=== PATIENT | male | born 1975 | race Caucasian/White ===

== ENCOUNTER → 2024-10-06 14:31 | Outpatient (CLI) | payer OTHER, SELFPAY ==
[2024-10-06 15:53] LABS: Influenza A - CEPHEID Flu A NEGATIVE (NEGATIVE); Influenza B - CEPHEID Flu B NEGATIVE (NEGATIVE); Respiratory Syncytial Virus Negative (Negative)
[2024-10-06 17:17] LABS: COVID-19 CEPHEID 4-PLEX PCR Negative (Negative)
== END ==
PROVIDERS: Visit Provider Student in an Organized Health Care Education/Training Program
DX: N23 Unspecified renal colic (principal); R50.9 Fever, unspecified; R05.1 Acute cough; J06.9 Acute upper respiratory infection, unspecified; Z85.6 Personal history of leukemia
CPT/HCPCS: 0241U; 87086

== ENCOUNTER 2024-10-10 15:16 | Observation (INO) | payer OTHER, SELFPAY ==
[2024-10-10] VITALS (14 sets, daily range): BP systolic 114–151; BP diastolic 67–97; PULSE 71–86; RESP 16–22; TEMP 36.8–37.9; O2SAT 88–97; BMI 28.3
--- NOTE | 2024-10-10 15:36 | DI.RAD.S_ITS ---
PROCEDURE: XR CHEST 2V INDICATIONS: pneumonia TECHNIQUE: 2 views of the chest were acquired. COMPARISON: None. FINDINGS: Surgical changes and devices: None. Lungs and pleura: There is patchy airspace opacity within the right lower lung. No pleural effusions or pneumothorax. Mediastinum: Mediastinal contours are normal. Heart size is normal. Bones and chest wall: No suspicious bony abnormalities. Soft tissues appear unremarkable. IMPRESSION: Right-sided pneumonia in the appropriate clinical setting. Dictated by: Ciarra Montanez M.D. on 10/10/2024 at 15:26 Approved by: Ciarra Montanez M.D. on 10/10/2024 at 15:27
[2024-10-10 15:47] LABS: Add Manual Diff / Slide Review NO; Basophils Absolute Auto 0 /uL (0-100); Basophils Percent Auto 0.8 % (0-2); Eosinophils Absolute Auto 100 /uL (0-450); Eosinophils Percent Auto 1.4 % (2-4); Hematocrit 40.1 % (41-53); Hemoglobin 13.7 g/dL (13.5-17.5); Lymphocytes Absolute Auto 900 /uL (1100-4500); Mean Corpuscular HGB Conc 34.2 % (30-36); Mean Corpuscular Hemoglobin 30.3 PG (26-34); Mean Corpuscular Volume 88.8 fL (80-100); Monocytes Absolute Auto 500 /uL (0-900); Monocytes Percent Auto 10.7 % (3-14); Neutrophils Absolute Auto 3300 /uL (1500-7000); Neutrophils Percent Auto 69.1 % (50-75); Platelet Count 152 X10^3/uL (150-400); Red Blood Cell Count 4.51 X10^6/uL (4.5-5.9); Red Cell Distribution Width 13.9 % (11.6-14.8); White Blood Cell Count 4.8 X10^3/uL (4.5-11.0)
--- NOTE | 2024-10-10 15:47 | ED_ITS ---
HPI - SOB/Dyspnea General Chief Complaint: Shortness of Breath/Dyspnea Stated Complaint: Low O2, SoB, Weight Loss Time Seen by Provider: 10/10/24 15:30 Source: patient Mode of arrival: Wheelchair Limitations: no limitations History of Present Illness HPI Narrative: Patient is a healthy 48-year-old male with remote history of hairy-cell leukemia presenting today with cough and shortness of breath. Diagnosed with probable pneumonia 4 days ago, he had a negative COVID influenza RSV swab he was prescribed Augmentin and doxycycline however he did not start taking the antibiotics. He reports sweats and chills throughout the week he says his temperature never got above 100 she was not sure if you should take the antibiotics. He has had significant decrease in appetite and has lost 10 lb this week. He is continuing to drink fluids he is trying to drink some Pedialyte he is trying to have an ensure a day. But overall significant loss of appetite. He was noted to be hypoxic at the walk-in clinic today and was sent to the ED for evaluation. He says that he coughs every time he takes a deep breath. Related Data Previous Rx's Medication Instructions Recorded amoxicillin 875 mg-potassium 1 tab PO Q12H 7 days #14 tabs 10/06/24 clavulanate 125 mg tablet benzonatate 100 mg capsule 100 mg PO TID PRN cough 7 days #21 10/06/24 caps doxycycline hyclate 100 mg capsule 100 mg PO BID 7 days #14 caps 10/06/24 Allergies Allergy/AdvReac Type Severity Reaction Status Date / Time No Known Drug Allergies Allergy Verified 10/06/24 14:29 Patient History Medical History BCC (basal cell carcinoma of skin) Pneumonia Surgical History Hx of tonsillectomy Social History current occupational exposures/hazards: No Smoking Status: Never smoker alcohol intake: current substance use type: does not use Smoking Status: Never smoker alcohol intake frequency: a few times a week Substance Use Type: does not use Exam Initial Vital Signs Initial Vital Signs: Vital Signs Temperature 98.2 F 10/10/24 15:25 Pulse Rate 80 10/10/24 15:25 Respiratory Rate 22 10/10/24 15:25 Blood Pressure 151/97 H 10/10/24 15:25 Pulse Oximetry 94 10/10/24 15:25 Oxygen Delivery Method Room Air 10/10/24 15:25 GENERAL: Slightly diaphoretic 48-year-old male appears to not feel well and in no acute distress. HEENT: Head atraumatic,EOMI, pupils reactive, face symmetric, moist mucous membranes CARDIOVASCULAR: Regular rate and rhythm without murmurs, rubs or gallops. RESPIRATORY: Breath sounds equal bilaterally, no wheezes rales or rhonchi. ABDOMEN: Soft, nontender. Normoactive bowel sounds all 4 quadrants. No guarding or rebound. EXTREMITIES: Normal range of motion, no clubbing or edema. Neurovascularly intact NEUROLOGICAL: Alert and oriented x4.Normal gait and speech. Cranial nerves II through XII grossly intact. SKIN: Warm, dry, no laceration, no petechiae, no rashes or lesions. Course Orders Ordered: ED Orders 10/10/24 15:32 CBC Auto Diff [Complete Blood Count AUTO DIFF] Stat CMP [Comprehensive Metabolic Panel] Stat Lactate (Lactic Acid) Stat Procalcitonin Stat 10/10/24 15:36 Chest [XR chest 2V] Stat 10/10/24 15:58 Blood Culture Stat 10/10/24 17:05 CT angio chest PE protocol Stat Acetaminophen (Acetaminophen 325 Mg Tablet) 650 mg PO Q6H PRN PRN Reason: Fever/Mild Pain (1-3) Hydrocodone Bitart/Acetaminophen (Hydrocodone/Acet 5/325 Tablet) 1 tab PO Q4H PRN PRN Reason: Pain, Moderate (4-6) Al Hydrox/Mg Hydrox/Simethicone (Mag Hydrox/Alum/Simeth 30 Ml Udc) 30 ml PO Q6HR PRN PRN Reason: Dyspepsia Benzonatate (Benzonatate 100 Mg Capsule) 100 mg PO TID PRN PRN Reason: cough Calcium Carbonate (Calcium Carbonate 500 Mg Tab) 1,000 mg PO Q4HR PRN PRN Reason: Dyspepsia Enoxaparin Sodium (Enoxaparin 40 Mg/0.4 Ml Syringe) 40 mg SUBCUT DAILY KARIS Ceftriaxone Sodium 1,000 mg/ (Sodium Chloride) 100 mls @ 200 mls/hr IV Q24H [facility] Stop: 10/15/24 17:59 Azithromycin 500 mg/ Dextrose 250 mls @ 250 mls/hr IV Q24H [facility] Stop: 10/13/24 17:59 Naloxone HCl (Naloxone 0.4 Mg/Ml Vial) 0.2 mg IV Q2MIN PRN PRN Reason: Opiate Reversal Ondansetron HCl (Ondansetron 4 Mg/2 Ml Inj) 4 mg IV Q8HR PRN PRN Reason: Nausea And Vomiting Prednisone (Prednisone 20 Mg Tablet) 50 mg PO DAILY [facility] Stop: 10/18/24 08:59 Discontinued Medications Albuterol/Ipratropium (Albuterol/Ipratropium 3 Ml Ampul) 3 ml INH NOW ONE Stop: 10/10/24 15:53 Last Admin: 10/10/24 15:58 Dose: 3 ml Documented By: ROMEO Ceftriaxone Sodium 1,000 mg/ (Sodium Chloride) 100 mls @ 200 mls/hr IV NOW ONE Stop: 10/10/24 17:06 Last Admin: 10/10/24 17:15 Dose: 200 mls/hr Documented By: ZACHARY Azithromycin 500 mg/ Dextrose 250 mls @ 250 mls/hr IV NOW ONE Stop: 10/10/24 17:06 Vital Signs Vital signs: Vital Signs - 8 hr 10/10/24 15:25 10/10/24 15:50 10/10/24 16:00 Temperature 98.2 F Pulse Rate 80 86 76 Respiratory Rate 22 Blood Pressure 151/97 H Pulse Oximetry 94 97 91 Oxygen Delivery Method Room Air Oxygen Flow Rate 10/10/24 16:06 10/10/24 16:15 10/10/24 16:19 Temperature Pulse Rate 76 Respiratory Rate 16 Blood Pressure Pulse Oximetry 92 88 L 93 Oxygen Delivery Method Room Air Room Air Nasal Cannula Oxygen Flow Rate 0 2 10/10/24 16:30 10/10/24 16:45 10/10/24 16:45 Temperature Pulse Rate 84 81 Respiratory Rate Blood Pressure 144/68 H Pulse Oximetry 92 96 Oxygen Delivery Method Oxygen Flow Rate 10/10/24 17:00 10/10/24 17:00 Temperature Pulse Rate 84 Respiratory Rate Blood Pressure 135/67 Pulse Oximetry 94 Oxygen Delivery Method Oxygen Flow Rate MDM - SOB/Dyspnea Lab Data 10/10/24 15:32 10/10/24 15:32 Labs: Lab Results 10/10/24 Range/Units 15:32 WBC 4.8 (4.5-11.0) X10^3/uL RBC 4.51 (4.5-5.9) X10^6/uL Hgb 13.7 (13.5-17.5) g/dL Hct 40.1 L (41-53) % MCV 88.8 (80-100) fL MCH 30.3 (26-34) PG MCHC 34.2 (30-36) % RDW 13.9 (11.6-14.8) % Plt Count 152 (150-400) X10^3/uL Neut % (Auto) 69.1 (50-75) % Lymph % (Auto) 18.0 L (25-40) % [place] % (Auto) 10.7 (3-14) % Eos % (Auto) 1.4 L (2-4) % Baso % (Auto) 0.8 (0-2) % Neut # (Auto) 3300 (6935-3649) /uL Lymph # (Auto) 900 L (9673-5640) /uL [place] # (Auto) 500 (0-900) /uL Eos # (Auto) 100 (0-450) /uL Baso # (Auto) 0 (0-100) /uL Sodium 132 L (137-145) mmol/L Potassium 4.1 (3.4-5.1) mmol/L Chloride 98 (98-107) mmol/L Carbon Dioxide 28 (22-32) mmol/L BUN 15 (9-20) mg/dL Creatinine 1.11 (0.66-1.25) mg/dL Estimated GFR > 60 (>60) mL/min BUN/Creatinine Ratio 13.5 (6-22) Glucose 102 H (70-100) mg/dL Lactate 1.1 (0.7-2.1) mmol/L Calcium 9.1 (8.4-10.2) mg/dL Total Bilirubin 0.7 (0.2-1.3) mg/dL AST 50 (17-59) IU/L ALT 48 (<50) IU/L Alkaline Phosphatase 50 (38-126) U/L Total Protein 7.3 (6.3-8.2) g/dL Albumin 4.0 (3.5-5.0) g/dL Globulin 3.3 (1.7-4.1) g/dL Albumin/Globulin Ratio 1.2 (1.0-2.8) Procalcitonin 0.277 (<0.5) ng/mL Imaging Data CT scan - chest: Radiologist's Impression: PROCEDURE: CT ANGIO CHEST PE PROTOCOL INDICATIONS: hypoxia TECHNIQUE: After the administration of intravenous contrast, 2 mm thick sections acquired from the pulmonary apices to the posterior costophrenic angles. 3-dimensional maximum intensity projection (MIP) coronal and sagittal reformats were then acquired through the thorax. For radiation dose reduction, the following was used: automated exposure control, adjustment of mA and/or kV according to patient size. COMPARISON: None. FINDINGS: Image quality: Diagnostic. Pulmonary arteries: Pulmonary arteries are normal in size, and demonstrate no intraluminal filling defects to suggest central pulmonary embolism. Lower Neck: No enlarged lymph nodes. Thyroid: No thyroid nodules which require sonographic follow up, per consensus guidelines. Axillae: No enlarged lymph nodes. Chest Wall: Unremarkable. Bones: Unremarkable. Lungs and Pleura: No pneumothorax or pleural effusions. Lungs demonstrate scattered centrilobular ground-glass opacities throughout with a lower lung predominance. Heart: Heart size is normal. No pericardial effusion. Thoracic Vessels: No aortic aneurysm. Mediastinum and [place]: No enlarged lymph nodes. Esophagus: No wall thickening. No hiatal hernia. Upper Abdomen: Visualized upper abdomen solid organs and bowel loops appear normal. IMPRESSION: No pulmonary embolus. Diffuse airspace opacities consistent with an infectious process including covid. Dictated by: Ciarra Montanez M.D. on 10/10/2024 at 16:49 Chest x-ray: Radiologist's Impression: PROCEDURE: XR CHEST 2V INDICATIONS: pneumonia TECHNIQUE: 2 views of the chest were acquired. COMPARISON: None. FINDINGS: Surgical changes and devices: None. Lungs and pleura: There is patchy airspace opacity within the right lower lung. No pleural effusions or pneumothorax. Mediastinum: Mediastinal contours are normal. Heart size is normal. Bones and chest wall: No suspicious bony abnormalities. Soft tissues appear unremarkable. IMPRESSION: Right-sided pneumonia in the appropriate clinical setting. Dictated by: Ciarra Montanez M.D. on 10/10/2024 at 15:26 Approved by: Ciarra Montanez M.D. on 10/10/2024 at 15:27 MDM Narrative Medical decision making narrative: MDM CC: Cough fever Complicating co-morbidities: Remote history hairy-cell leukemia, in remission since 2018 Medical records reviewed: Recent walk-in clinic Differential considered: Pneumonia viral illness CHF pulmonary embolus Exam documented above, pertinent findings include: Decreased breath sounds bilaterally no wheezes rales or rhonchi slightly diaphoretic no significant conversational dyspnea Lab Test results independently reviewed as above. Pertinent findings: CBC does not show any leukocytosis or anemia, WBCs 4.8 hemoglobin 13.7 hematocrit 40.1 CMP no significant electrolyte abnormality or NILSA, creatinine is 1.1 which is baseline Lactate 1.1, procalcitonin 0.277 Imaging studies independently reviewed: Chest x-ray consistent with pneumonia CT angio no pulmonary embolism consistent with pneumonia Consultations: Dr. Barron updated patient's symptoms test results, accepts to observation Treatments: Albuterol, Rocephin and azithromycin Re-evaluations: No significant improvement after albuterol patient was 88% on room air placed on 1 L Patient ambulated on room air around the department O2 sat went to 83% and lips got cyanotic Discussion: Patient 48-year-old male remote history of hairy cell leukemia presenting today with cough fever shortness of breath and hypoxia. He was diagnosed with probable pneumonia if you days ago prescribed antibiotics but not started on them. X-ray confirms pneumonia. Blood work has been reviewed and overall reassuring without evidence of sepsis. He had a negative viral panel few days ago Due to patient's significant exertional hypoxia patient will need to be admitted. CT does not show any evidence of embolism. He has no sign of severe sepsis he has no leukocytosis hypotension or tachycardia he has a normal lactate. However he is requiring oxygen. Discharge Plan Departure Patient Disposition: Admitted as Observation Clinical Impression: Pneumonia Admit Date/Time: 10/10/24 17:15 Admit Provider: El Barron
[2024-10-10 15:57] LABS: Alanine Aminotransferase 48 IU/L (<50); Albumin Globulin Ratio 1.2 (1.0-2.8); Alkaline Phosphatase 50 U/L (38-126); Aspartate Aminotransferase 50 IU/L (17-59); BUN Creatinine Ratio 13.5 (6-22); Bilirubin Total 0.7 mg/dL (0.2-1.3); Blood Urea Nitrogen 15 mg/dL (9-20); Calcium 9.1 mg/dL (8.4-10.2); Carbon Dioxide 28 mmol/L (22-32); Chloride 98 mmol/L (98-107); Estimated Glomerular Filt Rate > 60 mL/min (>60); Globulin 3.3 g/dL (1.7-4.1); Glucose 102 mg/dL (70-100); HEMOLYSIS 19 (0-50); Lactate (Lactic Acid) 1.1 mmol/L (0.7-2.1); Potassium 4.1 mmol/L (3.4-5.1); Sodium 132 mmol/L (137-145); Total Protein 7.3 g/dL (6.3-8.2)
[2024-10-10] MEDS: ALBUTEROL/IPRATROPIUM 3 ML AMPUL INH (15:58)
[2024-10-10 16:14] LABS: Procalcitonin 0.277 ng/mL (<0.5)
--- NOTE | 2024-10-10 16:47 | PC.NURSE ---
patient was 91% on RA prior to ambulating on a pulse ox. He walked approx. 100ft. At the end of the walk his o2 sat dropped to 83% on RA. His breathing became slightly labored and his lips became cyanotic. He was placed on 2L NC and was slow to 02 sat recovery. His o2 saturation is currently 94% on 2L NC
--- NOTE | 2024-10-10 17:05 | DI.CT.S_ITS ---
PROCEDURE: CT ANGIO CHEST PE PROTOCOL INDICATIONS: hypoxia TECHNIQUE: After the administration of intravenous contrast, 2 mm thick sections acquired from the pulmonary apices to the posterior costophrenic angles. 3-dimensional maximum intensity projection (MIP) coronal and sagittal reformats were then acquired through the thorax. For radiation dose reduction, the following was used: automated exposure control, adjustment of mA and/or kV according to patient size. COMPARISON: None. FINDINGS: Image quality: Diagnostic. Pulmonary arteries: Pulmonary arteries are normal in size, and demonstrate no intraluminal filling defects to suggest central pulmonary embolism. Lower Neck: No enlarged lymph nodes. Thyroid: No thyroid nodules which require sonographic follow up, per consensus guidelines. Axillae: No enlarged lymph nodes. Chest Wall: Unremarkable. Bones: Unremarkable. Lungs and Pleura: No pneumothorax or pleural effusions. Lungs demonstrate scattered centrilobular ground-glass opacities throughout with a lower lung predominance. Heart: Heart size is normal. No pericardial effusion. Thoracic Vessels: No aortic aneurysm. Mediastinum and [place]: No enlarged lymph nodes. Esophagus: No wall thickening. No hiatal hernia. Upper Abdomen: Visualized upper abdomen solid organs and bowel loops appear normal. IMPRESSION: No pulmonary embolus. Diffuse airspace opacities consistent with an infectious process including covid. Dictated by: Ciarra Montanez M.D. on 10/10/2024 at 16:49 Approved by: Ciarra Montanez M.D. on 10/10/2024 at 16:55
[2024-10-10] MEDS: cefTRIAXone 1,000 MG in SODIUM CHLORIDE 0.9% 100 ML 200 MG IV (17:15)
--- NOTE | 2024-10-10 17:46 | PM.HP.1 ---
History of Present Illness History of Present Illness Date Patient Seen: 10/10/24 Chief complaint: Low O2, SoB, Weight Loss Narrative: Patient is a 48-year-old male with 2 previous episodes of pneumonia and hairy cell leukemia which is in remission. He was followed by Dr. Carpio of [facility]. Became ill a week ago with primarily URI symptoms including nasal congestion, rhinorrhea, and cough. He had a fever and profound fatigue and was in bed most of the day for close to a week. He then felt better on Friday morning but then became more ill and fatigued again later in the day Friday. He now has symptoms of chest congestion and productive cough of dark green and brown material. He does not having fevers. He was short of breath, especially with exertion. In the ED he was found to be hypoxemic with any movement and a lobar infiltrate in the right upper lobe was found on chest x-ray. He had blood cultures drawn was started on ceftriaxone and azithromycin. He has a history of a lower white cell count. He sees his oncologist twice a year and has been clear for some time. He denies any diarrhea and a respiratory PCR at an interim ER visit was negative. He was given oral antibiotics and advised to take them if he got worse but did not start these as he thought he was getting better Friday. [facility] Medical History BCC (basal cell carcinoma of skin) Pneumonia Surgical History Hx of tonsillectomy Social History current occupational exposures/hazards: No Smoking Status: Never smoker alcohol intake: current substance use type: does not use Meds Home Medications and Allergies Home Medications Medication Instructions Recorded Confirmed Type amoxicillin 875 mg-potassium 1 tab PO Q12H 7 days #14 tabs 10/06/24 10/06/24 Rx clavulanate 125 mg tablet benzonatate 100 mg capsule 100 mg PO TID PRN cough 7 days #21 10/06/24 10/06/24 Rx caps doxycycline hyclate 100 mg capsule 100 mg PO BID 7 days #14 caps 10/06/24 10/06/24 Rx Allergies Allergy/AdvReac Type Severity Reaction Status Date / Time No Known Drug Allergies Allergy Verified 10/06/24 14:29 Review of Systems Review of Systems Narrative: All else reviewed and otherwise unremarkable except as noted in the history and physical. Exam Vital Signs (past 8 hours): - 10/10/24 15:25 10/10/24 15:50 10/10/24 16:00 Temperature 98.2 F Pulse Rate 80 86 76 Respiratory Rate 22 Blood Pressure 151/97 H Pulse Oximetry 94 97 91 Oxygen Delivery Method Room Air Oxygen Flow Rate 10/10/24 16:06 10/10/24 16:15 10/10/24 16:19 Temperature Pulse Rate 76 Respiratory Rate 16 Blood Pressure Pulse Oximetry 92 88 L 93 Oxygen Delivery Method Room Air Room Air Nasal Cannula Oxygen Flow Rate 0 2 10/10/24 16:30 10/10/24 16:45 10/10/24 16:45 Temperature Pulse Rate 84 81 Respiratory Rate Blood Pressure 144/68 H Pulse Oximetry 92 96 Oxygen Delivery Method Oxygen Flow Rate 10/10/24 17:00 10/10/24 17:00 Temperature Pulse Rate 84 Respiratory Rate Blood Pressure 135/67 Pulse Oximetry 94 Oxygen Delivery Method Oxygen Flow Rate Oxygen Delivery Method Nasal Cannula Oxygen Flow Rate 2 Narrative Exam Narrative: NAD, alert and oriented, fluent speech, calm. Normocephalic skull, EOMI, anicteric sclera, symmetric pupils. Oropharynx unremarkable, no droop. Neck supple, midline trachea, no adenopathy. Lungs clear, normal rate and effort. Heart regular, no murmur gallop or rub. Abdomen is soft, non distended and non tender. Extremities are free of edema. Skin is free of rash or lesions. Joints are not swollen or deformed. Judgment appears to be normal. Objective Imaging Chest x-ray: Radiologist's impression: Right-sided pneumonia in the appropriate clinical setting. CT scan - chest: Radiologist's impression: No pulmonary embolus. Diffuse airspace opacities consistent with an infectious process including covid. Labs 10/10/24 15:32 10/10/24 15:32 Labs: Laboratory Results - last 24 hr 10/10/24 15:32 WBC 4.8 RBC 4.51 Hgb 13.7 Hct 40.1 L MCV 88.8 MCH 30.3 MCHC 34.2 RDW 13.9 Plt Count 152 Neut % (Auto) 69.1 Lymph % (Auto) 18.0 L [place] % (Auto) 10.7 Eos % (Auto) 1.4 L Baso % (Auto) 0.8 Neut # (Auto) 3300 Lymph # (Auto) 900 L [place] # (Auto) 500 Eos # (Auto) 100 Baso # (Auto) 0 Sodium 132 L Potassium 4.1 Chloride 98 Carbon Dioxide 28 BUN 15 Creatinine 1.11 Estimated GFR > 60 BUN/Creatinine Ratio 13.5 Glucose 102 H Lactate 1.1 Calcium 9.1 Total Bilirubin 0.7 AST 50 ALT 48 Alkaline Phosphatase 50 Total Protein 7.3 Albumin 4.0 Globulin 3.3 Albumin/Globulin Ratio 1.2 Procalcitonin 0.277 Assessment & Plan Assessment & Plan narrative: 1. Community-acquired pneumonia, present on admission and active. 2. Acute hypoxic respiratory failure, present on admission and active. Plan: -IV antibiotics with ceftriaxone and azithromycin. -follow up blood cultures. -obtain sputum culture. -oxygen as needed, wean as able -restest for COVID Observation status, anticipate a 1 midnight stay. Full resuscitation ELIGIO is October 11. Time-Based Coding :: 35 min spent with patient and on the chart (including review of chart, obtaining history, exam, reviewing outside data, placing orders, documenting exam and treatment plan, and counseling patient) on 10/10. Quality MIPS - Admit I confirm the patient?s Advance Care Plan is present, Code status is documented, Surrogate decision maker is in patient?s record [If Yes, STOP here]: Yes MIPS - Meds 'Current medications' to include all prescriptions, [id number] products, herbals, cannabis/cannabidiol products, and vitamin/mineral/dietary (nutritional) supplements. I have utilized all available resources to obtain, update, or review the patient?s current medications. [If Yes, STOP here]: Yes
[2024-10-10] MEDS: AZITHROMYCIN 500 MG in DEXTROSE 5% IN WATER 250 ML 250 MG IV (18:40)
[2024-10-10] MEDS: BENZONATATE 100 MG CAPSULE PO (19:39)
[2024-10-10] MEDS: ACETAMINOPHEN 325 MG TABLET 650 MG PO (23:14)
[2024-10-11] VITALS (8 sets, daily range): BP systolic 103–132; BP diastolic 56–78; PULSE 54–69; RESP 16–19; TEMP 36.1–37.2; O2SAT 91–98
[2024-10-11] MEDS: BENZONATATE 100 MG CAPSULE PO ×2 (05:18→17:49)
[2024-10-11 05:53] LABS: Add Manual Diff / Slide Review NO; Basophils Absolute Auto 0 /uL (0-100); Basophils Percent Auto 0.5 % (0-2); Eosinophils Absolute Auto 100 /uL (0-450); Eosinophils Percent Auto 3.1 % (2-4); Hematocrit 38.9 % (41-53); Hemoglobin 13.1 g/dL (13.5-17.5); Lymphocytes Absolute Auto 800 /uL (1100-4500); Lymphocytes Percent Auto 19.3 % (25-40); Mean Corpuscular HGB Conc 33.6 % (30-36); Mean Corpuscular Volume 89.3 fL (80-100); Monocytes Absolute Auto 500 /uL (0-900); Monocytes Percent Auto 11.7 % (3-14); Neutrophils Absolute Auto 2600 /uL (1500-7000); Neutrophils Percent Auto 65.4 % (50-75); Platelet Count 151 X10^3/uL (150-400); Red Blood Cell Count 4.36 X10^6/uL (4.5-5.9); Red Cell Distribution Width 13.8 % (11.6-14.8)
[2024-10-11 06:04] LABS: Blood Urea Nitrogen 14 mg/dL (9-20); Calcium 8.7 mg/dL (8.4-10.2); Carbon Dioxide 30 mmol/L (22-32); Chloride 102 mmol/L (98-107); Estimated Glomerular Filt Rate > 60 mL/min (>60); Glucose 100 mg/dL (70-100); HEMOLYSIS < 15 (0-50); Potassium 4.3 mmol/L (3.4-5.1); Sodium 137 mmol/L (137-145)
--- NOTE | 2024-10-11 07:45 | P.PN_ITS ---
Subjective Subjective Interval history: Admitted with lobar pneumonia and hypoxemia. S: He was improved but still very congested in the chest and hypoxemic. He remains very fatigued as well. Exam Vital Signs (past 8 hours): - 10/11/24 00:53 10/11/24 03:00 10/11/24 06:57 Temperature 98.9 F 97 F L Pulse Rate 59 L Respiratory Rate 18 Blood Pressure 103/56 L Pulse Oximetry 95 Oxygen Delivery Method Nasal Cannula Oxygen Flow Rate 2 1.5 Fraction of Inspired Oxygen 26 Fraction of Inspired Oxygen 26 Oxygen Delivery Method Nasal Cannula Oxygen Flow Rate 1.5 Narrative Exam Narrative: NAD, alert and oriented. Fluent speech. Lungs are notable for diffuse chest congestion with rhonchi and scattered wheezing, normal rate and effort. Heart is regular, no murmur gallop or rub. Abdomen is soft, non distended. Extremities are free of edema. Objective Imaging CT scan - chest: Radiologist's impression: CT scan - chest: Radiologist's impression: No pulmonary embolus. Diffuse airspace opacities consistent with an infectious process including covid. Labs 10/11/24 05:10 10/11/24 05:10 Labs: Laboratory Results - last 24 hr 10/10/24 10/11/24 15:32 05:10 WBC 4.8 4.0 L RBC 4.51 4.36 L Hgb 13.7 13.1 L Hct 40.1 L 38.9 L MCV 88.8 89.3 MCH 30.3 30.0 MCHC 34.2 33.6 RDW 13.9 13.8 Plt Count 152 151 Neut % (Auto) 69.1 65.4 Lymph % (Auto) 18.0 L 19.3 L [place] % (Auto) 10.7 11.7 Eos % (Auto) 1.4 L 3.1 Baso % (Auto) 0.8 0.5 Neut # (Auto) 3300 2600 Lymph # (Auto) 900 L 800 L [place] # (Auto) 500 500 Eos # (Auto) 100 100 Baso # (Auto) 0 0 Sodium 132 L 137 Potassium 4.1 4.3 Chloride 98 102 Carbon Dioxide 28 30 BUN 15 14 Creatinine 1.11 1.17 Estimated GFR > 60 > 60 BUN/Creatinine Ratio 13.5 12.0 Glucose 102 H 100 Lactate 1.1 Calcium 9.1 8.7 Total Bilirubin 0.7 AST 50 ALT 48 Alkaline Phosphatase 50 Total Protein 7.3 Albumin 4.0 Globulin 3.3 Albumin/Globulin Ratio 1.2 Procalcitonin 0.277 [facility] Medical History BCC (basal cell carcinoma of skin) Pneumonia Surgical History Hx of tonsillectomy Social History household members: spouse and children current occupational exposures/hazards: No Smoking Status: Never smoker alcohol intake: current substance use type: does not use Assessment & Plan Assessment & Plan narrative: 1. Community-acquired pneumonia, present on admission and active. Some improvement. 2. Acute hypoxic respiratory failure, present on admission and active. Plan: -continue IV antibiotics with ceftriaxone and azithromycin. He will require another night of IV antibiotics as he remains hypoxemic and appears mildly ill. -follow up blood cultures. -obtain sputum culture. -oxygen as needed, wean as able -restest for COVID Observation status, anticipate a 1 midnight stay. Full resuscitation ELIGIO is October 12. Time-Based Coding :: [TOTAL MINUTES] spent with patient and on the chart (including review of chart, obtaining history, exam, reviewing outside data, placing orders, documenting exam and treatment plan, and counseling patient) on [DATE].
[2024-10-11] MEDS: predniSONE 20 MG TABLET 50 MG PO (09:06)
[2024-10-11] MEDS: ENOXAPARIN 40 MG/0.4 ML SYRINGE SUBCUT (09:07)
[2024-10-11] MEDS: SODIUM CHLORIDE 0.9% FLUSH 10 ML IV ×2 (09:08→20:50)
[2024-10-11 11:19] LABS: COVID-19 CEPHEID 4-PLEX PCR Negative (Negative); Influenza A - CEPHEID Flu A NEGATIVE (NEGATIVE); Influenza B - CEPHEID Flu B NEGATIVE (NEGATIVE); Respiratory Syncytial Virus Negative (Negative)
--- NOTE | 2024-10-11 13:55 | CM.DANOTE ---
Patient is a 48 yo male who was admitted on 10/10/24 for Pneumonia/Hypoxia. Pt has [employer] for insurance and his PCP is on the [facility]. EMR was reviewed. Per MD, pt with hx of leukemia in remission and prone to pneumonia and admitted for hypoxia and pneumonia and getting IV-Abx and remains on 2LO2 and not yet medically stable to discharge today but potentially tomorrow if he improves. Per MD, no currently need for PT eval. COVID swab negative. SW met bedside with pt briefly and explained role and he confirms he lives in [place] with his and kids and is active and independent at baseline with mobility and ADLs. 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 Pt denies any hx of HH or SNF and preference is to d/c home when medically stable and confirms spouse can transport and he does not anticipate any needs once he tolerates room air. Plan: SW to follow closely for plan of discharge home with family when medically stable and any further identified discharge planning needs. CYNTHIA Tirado Discharge Planning/Care Management CM Discharge Assessment Start: 10/11/24 13:53 Freq: Status: Active Protocol: Document 10/11/24 13:53 BF (Rec: 10/11/24 13:54 BF [id number]) Discharge Planning Assessment Assigned Recreational Therapy Aide CYNTHIA Stovall DPOA/Assigned Designee Name informally spouse Advance Directives? No Advance Directives on File No History Provided By Patient,Medical Record Has Patient been admitted in last 30 No days? Prior Living Arrangements House Household Members spouse,children Type of transporation used prior to Drives own vehicle admit Independent with ADL's Yes Is patient alert and oriented? Yes Caregiver for Another Yes: kids at home Barriers to Discharge No Discharge Plan Home Transportation Arrangement Likely spouse Referrals Initiated None needed Review Status In Process Please Provide Date Initial DC 10/11/24 Assessment Was Performed Next Review Type Continued Stay Review
[2024-10-11] MEDS: cefTRIAXone 1,000 MG in SODIUM CHLORIDE 0.9% 100 ML 200 MG IV (17:01)
[2024-10-11] MEDS: AZITHROMYCIN 500 MG in DEXTROSE 5% IN WATER 250 ML 250 MG IV (17:51)
[2024-10-12 03:00] VITALS: BP 122/77; PULSE 50; RESP 18; TEMP 36.4; O2SAT 97
[2024-10-12 06:28] LABS: Add Manual Diff / Slide Review NO; Basophils Absolute Auto 0 /uL (0-100); Basophils Percent Auto 0.4 % (0-2); Eosinophils Absolute Auto 100 /uL (0-450); Eosinophils Percent Auto 1.4 % (2-4); Hematocrit 38.7 % (41-53); Hemoglobin 13.2 g/dL (13.5-17.5); Lymphocytes Absolute Auto 700 /uL (1100-4500); Mean Corpuscular HGB Conc 34.2 % (30-36); Mean Corpuscular Hemoglobin 29.9 PG (26-34); Mean Corpuscular Volume 87.3 fL (80-100); Monocytes Absolute Auto 400 /uL (0-900); Monocytes Percent Auto 9.9 % (3-14); Neutrophils Absolute Auto 2900 /uL (1500-7000); Neutrophils Percent Auto 70.3 % (50-75); Platelet Count 194 X10^3/uL (150-400); Red Blood Cell Count 4.43 X10^6/uL (4.5-5.9); Red Cell Distribution Width 13.6 % (11.6-14.8); White Blood Cell Count 4.2 X10^3/uL (4.5-11.0)
[2024-10-12 06:39] LABS: BUN Creatinine Ratio 18.3 (6-22); Blood Urea Nitrogen 17 mg/dL (9-20); Calcium 8.9 mg/dL (8.4-10.2); Carbon Dioxide 24 mmol/L (22-32); Chloride 105 mmol/L (98-107); Estimated Glomerular Filt Rate > 60 mL/min (>60); Glucose 108 mg/dL (70-100); HEMOLYSIS < 15 (0-50); Potassium 4.1 mmol/L (3.4-5.1); Sodium 137 mmol/L (137-145)
[2024-10-12 07:00] VITALS: BP 119/77; PULSE 54; RESP 16; TEMP 36.3; O2SAT 98
[2024-10-12] MEDS: predniSONE 20 MG TABLET 50 MG PO (08:10)
[2024-10-12] MEDS: BENZONATATE 100 MG CAPSULE PO (08:11)
--- NOTE | 2024-10-12 09:38 | P.DS_ITS ---
History of Present Illness History of Present Illness Chief complaint: Low O2, SoB, Weight Loss Narrative: Patient is a 48-year-old male with 2 previous episodes of pneumonia and hairy cell leukemia which is in remission. He was followed by Dr. Carpio of [facility]. Became ill a week ago with primarily URI symptoms including nasal congestion, rhinorrhea, and cough. He had a fever and profound fatigue and was in bed most of the day for close to a week. He then felt better on Friday morning but then became more ill and fatigued again later in the day Friday. He now has symptoms of chest congestion and productive cough of dark green and brown material. He does not having fevers. He was short of breath, especially with exertion. In the ED he was found to be hypoxemic with any movement and a lobar infiltrate in the right upper lobe was found on chest x-ray. He had blood cultures drawn was started on ceftriaxone and azithromycin. He has a history of a lower white cell count. He sees his oncologist twice a year and has been clear for some time. He denies any diarrhea and a respiratory PCR at an interim ER visit was negative. He was given oral antibiotics and advised to take them if he got worse but did not start these as he thought he was getting better Friday. Discharge Providers Provider Date of admission: 10/10/24 17:15 Discharge Date: 10/12/24 Primary care physician: Doctor Yefri MD Discharge provider: El Barron MD Summary Hospital Course Discharge Diagnosis: 1. Community-acquired pneumonia, present on admission and improved. 2. Acute hypoxic respiratory failure, present on admission and resolved. Hospital Course: He was admitted with pneumonia which was worsening as well as hypoxic respiratory failure. He was placed on IV antibiotics, ceftriaxone and azithromycin and had good improvement over the next 2 days. On the day of discharge he was off from oxygen and breathing much more comfortably. He was cough and also diminished in frequency and the degree of production. He was felt to be stable for discharge home. Status at Discharge Cognitive/behavioral status at discharge: oriented Functional status at discharge: independent ambulation Overall status at discharge: patient is back to baseline Time Spent with Patient Time spent: Greater than 30 minutes Exam Vital Signs (past 8 hours): - 10/12/24 03:00 10/12/24 07:00 10/12/24 07:30 Temperature 97.6 F 97.3 F L Pulse Rate 50 L 54 L Respiratory Rate 18 16 Blood Pressure 122/77 119/77 Pulse Oximetry 97 98 Oxygen Delivery Method Room Air Nasal Cannula Oxygen Flow Rate 2 Fraction of Inspired Oxygen 26 Oxygen Delivery Method Room Air,Nasal Cannula Oxygen Flow Rate 2 Narrative Exam Narrative: NAD, alert and oriented. Fluent speech. Lungs are clear, normal rate and effort. Heart is regular, no murmur gallop or rub. Abdomen is soft, non distended. Extremities are free of edema. Objective Imaging CT scan - chest: Radiologist's impression: No pulmonary embolus. Diffuse airspace opacities consistent with an infectious process including covid. Chest x-ray: Radiologist's impression: Right-sided pneumonia in the appropriate clinical setting. Labs 10/12/24 05:50 10/12/24 05:50 Labs: Laboratory Results - last 24 hr 10/11/24 10/12/24 09:13 05:50 WBC 4.2 L RBC 4.43 L Hgb 13.2 L Hct 38.7 L MCV 87.3 MCH 29.9 MCHC 34.2 RDW 13.6 Plt Count 194 Neut % (Auto) 70.3 Lymph % (Auto) 18.0 L Bacon % (Auto) 9.9 Eos % (Auto) 1.4 L Baso % (Auto) 0.4 Neut # (Auto) 2900 Lymph # (Auto) 700 L Bacon # (Auto) 400 Eos # (Auto) 100 Baso # (Auto) 0 Sodium 137 Potassium 4.1 Chloride 105 Carbon Dioxide 24 BUN 17 Creatinine 0.93 Estimated GFR > 60 BUN/Creatinine Ratio 18.3 Glucose 108 H Calcium 8.9 SARS-CoV-2 (PCR) Negative Influenza A (RT-PCR) Flu a negative Influenza B (RT-PCR) Flu b negative RSV (PCR) [facility] Medical History BCC (basal cell carcinoma of skin) Pneumonia Surgical History Hx of tonsillectomy Social History household members: spouse and children current occupational exposures/hazards: No Smoking Status: Never smoker alcohol intake: current substance use type: does not use Discharge Assessment & Plan Assessment and Plan Assessment: 1. Community-acquired pneumonia, present on admission and improved. 2. Acute hypoxic respiratory failure, present on admission and resolved. Plan of Treatment: Discharge home and continue antibiotics at already filled including doxycycline b.i.d. and amoxicillin t.i.d.. He will follow up with PCP within a week. Discharge Plan Discharge Plan Patient Disposition: Home Provider Discharge Comment: Improved and off oxygen. Stable for discharge home on oral antibiotics. Discharge orders & Medications Prescriptions: New doxycycline hyclate 100 mg capsule 100 mg PO BID Qty: 10 0RF amoxicillin 500 mg capsule 500 mg PO Q8H Qty: 15 0RF Continued benzonatate 100 mg capsule 100 mg PO TID PRN (Reason: cough) 7 Days Qty: 21 1RF Follow up/Referrals: Doctor Asif MD [Primary Care Provider] - Skin/Wound/Dressing Care Report to your healthcare provider any signs of infection, such as:: chills, fever and night sweats Visit Report/Discharge Packet Instructions: How to Use an Incentive Spirometer, DI for Pneumonia -- Adult, DI for Cough -- Adult, How to Prevent Falls Stand Alone Forms: Patient Portal/API Discharge Data Primary Care Provider: Doctor Yefri Attending Provider: El Barron Admit Date/Time: 10/10/24 17:15
--- NOTE | 2024-10-12 11:32 | CM.DPC ---
DCP Cont. Reviewed EMR and team rounds for status updates. Pt has been medically cleared for home d/c, his spouse will be driving him home. No further CM assistance/resource needs identified at this time.
--- NOTE | 2024-10-12 14:54 | PC.NURSE ---
Pt feels ready to d/c to home. Seen by MD and given d/c instructions. Still has a freq cough, tessalon has been helpful and he has med at home. IS given and instructed in use. With enc he get to 1000 before a coughing episode starts. Tolerates diet, sats are 94% on RA. He was weaned from O2 this am. Discharge packet given and reviewed. Rx esent. Questions answered. Pt drove self to hospital and he feels strong enough to drive home. He reports he is better now than on arrival. Pt d/c to home by self.
--- NOTE | 2024-10-21 13:04 | PC.NURSE ---
late entry- per RN IV ceftriaxone infusion completed at 1800
== END 2024-10-12 11:55 | disposition home or self-care (01) ==
LOC: ED 17:13 → AC 17:16
PROVIDERS: Admitting Provider Hospitalist; Emergency Provider Emergency Medicine; Referring Provider Emergency Medicine; Visit Provider Hospitalist
DX: J16.8 Pneumonia due to other specified infectious organisms (principal); J96.01 Acute respiratory failure with hypoxia; C91.41 Hairy cell leukemia, in remission; Z11.52 Encounter for screening for COVID-19
CPT/HCPCS: 0241U; 36415; 71046; 71275; 80048; 80053; 83605; 84145; 85025; 87040; 87070; 87205; 94640; 94762; 96365; 96366; 96367; 99285; G0378; J0696; J1650; Q9967